=== PATIENT | male | born 1970 | race Two or more races ===

== ENCOUNTER 2020-06-17 15:37 | Inpatient (IN) | payer SELFPAY ==
[~2020-06-17] VITALS: Ht 152.4 cm; Wt 74.3 kg
[2020-06-17] MEDS ORDERED: ACETAMINOPHEN 325 MG TAB PO ONE (16:30)
[2020-06-17 16:49] LABS: Basophils # (auto) 0 10 ^3/uL (0-0.2); Basophils % (auto) 0.2 % (0.0-2.0); Eosinophils # (auto) 0.1 10 ^3/uL (0-0.8); Eosinophils % (auto) 1.3 % (0.0-7.0); Hematocrit 39.6 % (41.0-53.0); Hemoglobin 13.8 g/dL (13.5-17.5); Lymphocytes # (auto) 1.1 10 ^3/uL (0.4-5.4); Mean Corpuscular Hemoglobin 31.2 pg (28.0-32.0); Mean Corpuscular Hgb Conc. 34.9 g/dL (32.0-36.0); Mean Corpuscular Volume 89.4 fL (80.0-100.0); Monocytes # (auto) 0.4 10 ^3/uL (0-1.3); Monocytes % (auto) 4.7 % (0.0-12.0); Neutrophils # (auto) 6.6 10 ^3/uL (1.6-8.6); Neutrophils % (auto) 80.8 % (37.0-80.0); Nucleated Red Blood Cells % 0.1 %; Platelet Count (auto) 384 10^3/uL (140-450); Red Blood Cells 4.43 10^6/uL (4.5-5.90); Red Cell Distribution Width 13.2 % (11.8-14.3); White Blood Cell 8.2 10^3/uL (4.4-10.8)
[2020-06-17 17:06] LABS: Albumin 2.1 g/dL (3.4-5.0); Anion Gap 9 (5-15); Calcium 8.1 mg/dL (8.5-10.1); Carbon Dioxide 21 mmol/L (21-32); Chloride 103 mmol/L (98-107); Glucose 180 mg/dL (74-106); Magnesium 2.4 mg/dL (1.6-2.6); Potassium 4.2 mmol/L (3.5-5.1); Sodium 133 mmol/L (136-145)
[2020-06-17 17:07] LABS: INR 1.15 (0.9-1.15); Partial Thromboplastin Time 25.1 sec (23.0-31.2)
[2020-06-17 17:09] LABS: Lactic Acid w/Reflex 2.1 mmol/L (0.4-2.0)
[2020-06-17 17:11] LABS: Alanine Aminotransferase 56 U/L (16-61); Aspartate Aminotransferase 58 U/L (15-37); BUN/Creatinine Ratio 26.5; Bilirubin, Total 0.5 mg/dL (0.2-1.0); Blood Urea Nitrogen 18 mg/dL (7-18); GFR African American 157 mL/min; GFR Non-African American 130 mL/min; Total Protein 7.6 g/dL (6.4-8.2)
[2020-06-17 17:12] LABS: Alkaline Phosphatase 233 U/L (45-117)
[2020-06-17] MEDS ORDERED: DexAMETHasone SOD PHOS 10MG/1ML VIAL INJ IV ONE (17:15)
[2020-06-17] MEDS ORDERED: AZITHROMYCIN 500MG/ 250ML 250 ML IV ONE (17:15)
[2020-06-17] MEDS ORDERED: INFLUENZA QUAD 2020-2021 0.5 ML SYRG IM ONE (18:00)
[2020-06-17] MEDS ORDERED: SODIUM CHLORIDE 0.9% 1,000 ML IV SCH (18:00)
[2020-06-17] MEDS ORDERED: NITROGLYCERIN 0.4 MG SL TAB SL PRN (18:00)
[2020-06-17] MEDS ORDERED: ONDANSETRON HCL 4 MG/2 ML VIAL IV PRN (18:00)
[2020-06-17] MEDS ORDERED: ACETAMINOPHEN 500 MG TAB PO PRN (18:00)
[2020-06-17] MEDS ORDERED: LORazepam 0.5 MG TAB PO PRN (18:00)
[2020-06-17] MEDS ORDERED: DOCUSATE SOD 100 MG CAP PO PRN (18:00)
[2020-06-17] MEDS ORDERED: HYDROcodone-ACET 5/325MG TAB PO PRN (18:00)
[2020-06-17] MEDS ORDERED: REMDESIVIR PER PHARMACY 0 ML IV SCH (18:00)
[2020-06-17] MEDS ORDERED: ACETAMINOPHEN 325 MG TAB PO PRN (18:00)
[2020-06-17] MEDS ORDERED: PIPERACILLIN-TAZOB 2.25GM 50 ML IV ONE (18:00)
[2020-06-17] MEDS ORDERED: ALUM & MAG HYDROX-SIMETH LIQ(MAALOX) 30 ML PO PRN (18:00)
[2020-06-17] MEDS ORDERED: VANCOMYCIN PER PHARMACY 0 MG IV SCH (18:00)
[2020-06-17] MEDS ORDERED: MORPHINE SULF INJ 2 MG/ML SYRINGE 1ML IV PRN ×2 (18:00)
[2020-06-17] MEDS ORDERED: PNEUMOCOCCAL VACC POLYS 25 MCG/0.5 ML VIAL IM ONE (18:00)
[2020-06-17] MEDS ORDERED: ALBUMIN 25% 100 ML IV ONE (18:15)
[2020-06-17] MEDS ORDERED: PIPERACILLIN-TAZOB 3.375GM 100 ML IV ONE (18:15)
[2020-06-17] MEDS ORDERED: FUROSEMIDE 20 MG/2 ML VIAL IV ONE (18:15)
[2020-06-17] MEDS ORDERED: ENOXAPARIN SOD 80 MG/0.8ML SYRINGE SC ONE (18:30)
[2020-06-17 19:02] LABS: Urine Bacteria NONE SEEN /hpf (None Seen); Urine Blood Negative /uL (Negative); Urine Mucus FEW (None Seen); Urine Specific Gravity 1.023 (1.001-1.035); Urine WBC <1 /hpf (0 - 3)
[2020-06-17] MEDS: VANCOMYCIN 1GM/250ML 250 ML IV SCH (21:04)
[2020-06-17] MEDS: FAMOTIDINE (10MG/ML) 2ML VL IV SCH (21:19)
[2020-06-17] MEDS: BUDESONIDE (INHALATION) 180 MCG IH IN SCH (22:00)
[2020-06-17 23:14] LABS: Basophils # (auto) 0 10 ^3/uL (0-0.2); Basophils % (auto) 0.3 % (0.0-2.0); Eosinophils # (auto) 0 10 ^3/uL (0-0.8); Eosinophils % (auto) 0.3 % (0.0-7.0); Hematocrit 40.2 % (41.0-53.0); Hemoglobin 13.2 g/dL (13.5-17.5); Lymphocytes # (auto) 0.7 10 ^3/uL (0.4-5.4); Lymphocytes % (auto) 10.5 % (10.0-50.0); Mean Corpuscular Hemoglobin 29.8 pg (28.0-32.0); Mean Corpuscular Hgb Conc. 32.9 g/dL (32.0-36.0); Mean Corpuscular Volume 90.6 fL (80.0-100.0); Monocytes # (auto) 0.2 10 ^3/uL (0-1.3); Monocytes % (auto) 2.5 % (0.0-12.0); Neutrophils # (auto) 5.6 10 ^3/uL (1.6-8.6); Neutrophils % (auto) 86.4 % (37.0-80.0); Nucleated Red Blood Cells % 0.1 %; Platelet Count (auto) 411 10^3/uL (140-450); Red Blood Cells 4.44 10^6/uL (4.5-5.90); Red Cell Distribution Width 13.6 % (11.8-14.3); White Blood Cell 6.5 10^3/uL (4.4-10.8)
[2020-06-17 23:32] LABS: Albumin 2.6 g/dL (3.4-5.0); Anion Gap 10 (5-15); Blood Urea Nitrogen 19 mg/dL (7-18); Calcium 8.6 mg/dL (8.5-10.1); Carbon Dioxide 22 mmol/L (21-32); Chloride 101 mmol/L (98-107); Magnesium 2.5 mg/dL (1.6-2.6); Potassium 4.3 mmol/L (3.5-5.1); Sodium 133 mmol/L (136-145)
[2020-06-17 23:40] LABS: Cholesterol 106 mg/dL (< 200); Triglycerides 232 mg/dL (< 150)
[2020-06-17 23:42] LABS: Alanine Aminotransferase 51 U/L (16-61); Alkaline Phosphatase 220 U/L (45-117); Aspartate Aminotransferase 45 U/L (15-37); Bilirubin, Total 0.8 mg/dL (0.2-1.0); GFR African American 145 mL/min; GFR Non-African American 120 mL/min; Glucose 280 mg/dL (74-106); Lactate Dehydrogenase 522 U/L (87-241); Total Protein 7.7 g/dL (6.4-8.2)
[2020-06-17 23:43] LABS: HDL Cholesterol 13 mg/dL (40-59); LDL Cholesterol 58 mg/dL (< 100)
[2020-06-17 23:44] LABS: CRP High Sensitivity > 19 mg/dL (< 0.3)
[2020-06-18 00:38] LABS: Alcohol, Urine < 3.0 mg/dL (0-10); Amphetamine Screen, Urine NEGATIVE (NEGATIVE); Barbiturate Scree,Urine NEGATIVE (NEGATIVE); Benzodiazephine Screen, Urine NEGATIVE (NEGATIVE); Cannabinoid Screen, Urine NEGATIVE (NEGATIVE); Cocaine Screen, Urine NEGATIVE (NEGATIVE); Opiate Scree,Urine NEGATIVE (NEGATIVE); Phencyclidine Screen, Urine NEGATIVE (NEGATIVE)
[2020-06-18] MEDS: ALBUMIN 25% 100 ML IV SCH ×3 (01:10→23:15)
[2020-06-18 02:21] LABS: Albumin 2.3 g/dL (3.4-5.0); BUN/Creatinine Ratio 32.3; Calcium 8.1 mg/dL (8.5-10.1); Potassium 4.3 mmol/L (3.5-5.1)
[2020-06-18 02:28] LABS: Bilirubin, Total 0.5 mg/dL (0.2-1.0); Total Protein 7.2 g/dL (6.4-8.2)
[2020-06-18 03:45] LABS: Free T4 (Free Thyroxine) 1.19 ng/dL (0.89-1.76)
[2020-06-18 03:46] LABS: T3 Total 0.47 ng/mL (0.60-1.81)
[2020-06-18] MEDS: VANCOMYCIN 1GM/250ML 250 ML IV SCH ×2 (05:00→13:32)
[2020-06-18] MEDS: FUROSEMIDE 20 MG/2 ML VIAL IV SCH ×2 (05:03→18:39)
[2020-06-18] MEDS: ENOXAPARIN SOD 80 MG/0.8ML SYRINGE SC SCH ×2 (05:03→18:39)
[2020-06-18] MEDS: PIPERACILLIN-TAZOB 3.375GM 100 ML IV SCH ×4 (05:04→23:26)
[2020-06-18 05:30] LABS: Basophils # (auto) 0 10 ^3/uL (0-0.2); Basophils % (auto) 0.1 % (0.0-2.0); Eosinophils # (auto) 0 10 ^3/uL (0-0.8); Eosinophils % (auto) 0.1 % (0.0-7.0); Hemoglobin 13.3 g/dL (13.5-17.5); Lymphocytes # (auto) 0.9 10 ^3/uL (0.4-5.4); Lymphocytes % (auto) 17.1 % (10.0-50.0); Mean Corpuscular Hemoglobin 29.8 pg (28.0-32.0); Mean Corpuscular Hgb Conc. 33.1 g/dL (32.0-36.0); Monocytes # (auto) 0.2 10 ^3/uL (0-1.3); Monocytes % (auto) 4.5 % (0.0-12.0); Neutrophils # (auto) 4.1 10 ^3/uL (1.6-8.6); Neutrophils % (auto) 78.2 % (37.0-80.0); Nucleated Red Blood Cells % 0.1 %; Platelet Count (auto) 445 10^3/uL (140-450); Red Blood Cells 4.45 10^6/uL (4.5-5.90); Red Cell Distribution Width 13.1 % (11.8-14.3); White Blood Cell 5.2 10^3/uL (4.4-10.8)
--- NOTE | 2020-06-18 06:08 | NUR ---
Respiratory note: PATIENT SEEN, HR 82, RR 21, SPO2 92% ON 15L NRB. NO MDI'S AT BEDSIDE. WILL CALL PHARMACY
[2020-06-18] MEDS: BUDESONIDE (INHALATION) 180 MCG IH IN SCH ×2 (10:00→22:29)
[2020-06-18] MEDS: FAMOTIDINE (10MG/ML) 2ML VL IV SCH ×2 (10:08→23:00)
[2020-06-18] MEDS: ZINC SULFATE 220mg CAP or TAB PO SCH (10:08)
[2020-06-18] MEDS: DexAMETHasone SOD PHOS 10MG/1ML VIAL INJ IV SCH (10:08)
[2020-06-18] MEDS: ASCORBIC ACID 1,000 MG TAB PO SCH (10:09)
[2020-06-18] MEDS: CHOLECALCIFEROL (VITD3) 2,000 UNIT CAP PO SCH (10:09)
[2020-06-18] MEDS ORDERED: REMDESIVIR 200 MG in NS 210ml LOADING DOSE ADULT IV ONE (15:00)
[2020-06-18] MEDS ORDERED: LEVOTHYROXINE SODIUM 25 MCG TAB PO ONE (19:30)
[2020-06-18] MEDS ORDERED: DEXTROSE (50%) 50ML SYRG IV PRN (19:30)
--- NOTE | 2020-06-18 21:00 | NUR ---
Home Medication Patient does not remember what medications he takes at home. Will attempt to all daughter in the morning and reconcile home medications.
[2020-06-18 22:05] VITALS: BP 104/70
--- NOTE | 2020-06-18 22:05 | NUR ---
Telemetry admit from ER to [place] [id number] unit JAYLYN CHAN admitted to Telemetry unit with no SBAR received. This RN found patient laying in bed with nonrebreather at 0L/min on a portable oxygen tank after ER dropped off patient. This RN immediately connected oxygen to 15L/min nonrebreather, oxygen saturation was found in the high 70s, low 80s. This RN instructed patient to take several deep breaths. Patient's oxygen increased to 86% and sustained at 86% on 15L/min nonrebreather, respiratory therapist was notified. Patient is alert and oriented x4. Patient oriented to TAYLOR DAY, primary RN, unit, room, bed, and unit policies regarding patient care and visiting hours. Patient now on continuous telemetry monitoring, tele box #7 and telemetry reading on arrival to unit is sinus rhythm. Instructed on plan of care and encouraged patient to call for assistance as needed, patient verbalized understanding. Bed is locked in lowest position, side rails x 2 are up, call light is within reach, and bed alarm is on. Patient's oxygen saturation is now at 90% via 15L/min nonrebreather. Addendum: 06/19/20 at 0224 by TAYLOR DAY RN RN Correct admit time 20:24
--- NOTE | 2020-06-18 22:11 | NUR ---
Spoke with pharmacist regarding scheduled 18:00 zosyn Spoke with pharmacist regarding scheduled 18:00 zosyn. Notified pharmacist that patient was in the ER at 18:00 and was not given the scheduled zosyn per EMAR. Pharmacist notified that this RN has another scheduled 00:00 zosyn. Per pharmacist skip the 18:00 and give 00:00 zosyn.
[2020-06-18] MEDS: ALBUTEROL SULF HFA 90MCG INH 200DOSE IN PRN (22:29)
[2020-06-18] MEDS ORDERED: ALBUMIN 25% 100 ML IV ONE (22:47)
[2020-06-18] MEDS: INSULIN LANTUS (GLARGINE) 1 /0.01ml (100units/ml) SC SCH (23:06)
[2020-06-18] MEDS: InsuLIN REG 1unit/0.01ml Soln (100units/ml) SC SCH (23:23)
[2020-06-19] MEDS: ACCU-CHEK COMFORT CURVE STRIP VI SCH ×4 (01:24→17:55)
[2020-06-19] MEDS ORDERED: INFLUENZA QUAD 2020-2021 0.5 ML SYRG IM ONE (01:30)
[2020-06-19 06:00] VITALS: BP 109/77
[2020-06-19] MEDS: ENOXAPARIN SOD 80 MG/0.8ML SYRINGE SC SCH ×2 (06:01→17:55)
[2020-06-19] MEDS: LEVOTHYROXINE SODIUM 25 MCG TAB PO SCH (06:01)
[2020-06-19] MEDS: PIPERACILLIN-TAZOB 3.375GM 100 ML IV SCH ×3 (06:01→17:54)
[2020-06-19] MEDS: FUROSEMIDE 20 MG/2 ML VIAL IV SCH (06:01)
[2020-06-19] MEDS: InsuLIN REG 1unit/0.01ml Soln (100units/ml) SC SCH ×3 (06:16→17:56)
[2020-06-19 08:00] VITALS: BP 127/72
[2020-06-19] MEDS: BUDESONIDE (INHALATION) 180 MCG IH IN SCH ×2 (10:00→18:00)
[2020-06-19] MEDS: DexAMETHasone SOD PHOS 10MG/1ML VIAL INJ IV SCH (10:19)
[2020-06-19] MEDS: ZINC SULFATE 220mg CAP or TAB PO SCH (10:20)
[2020-06-19] MEDS: FAMOTIDINE (10MG/ML) 2ML VL IV SCH ×2 (10:20→22:45)
[2020-06-19] MEDS: CHOLECALCIFEROL (VITD3) 2,000 UNIT CAP PO SCH (10:20)
[2020-06-19] MEDS: ASCORBIC ACID 1,000 MG TAB PO SCH (10:20)
[2020-06-19 12:00] VITALS: BP 127/72
--- NOTE | 2020-06-19 13:00 | NUR ---
PATIENT C/O CHEST PAIN TO THE UPPER RIGHT ANTERIOR CHEST. PER PATIENT THIS HAS BEEN HAPPENING OFF AND ON FOR APPROXIMATELY [address] HANCOCK NOTIFIED EKG DONE IN CHART, I READ WHAT THE EKG SHOWED TO DR HANCOCK AND PER DR HANCOCK PLACE CARDIAC CONSULT TO [facility].
[2020-06-19] MEDS ORDERED: ASPirin 81 mg TAB PO ONE (13:45)
--- NOTE | 2020-06-19 14:00 | NUR ---
ABIOLA NOTIFIED AND NOT GROUTER HELPER , CONSULT CALLED TO DR PERRY.
[2020-06-19] MEDS: REMDESIVIR 100 MG in SODIUM CHL 0.9% 250 ML IV SCH (15:47)
[2020-06-19 17:00] VITALS: BP 118/76
--- NOTE | 2020-06-19 18:00 | NUR ---
CONVALESCENT PLASMA GIVEN PATIENT TOLERATED WELL. VITAL SIGNS [id number] 84, 92% 20 98.0 MID 112/76 87 91% 97.7 20 POST 118/76 82 95% 22 97.7
--- NOTE | 2020-06-19 18:47 | NUR ---
PATIENT HAS NO COMPLAINTS OF PAIN
[2020-06-19] MEDS: ALBUTEROL SULF HFA 90MCG INH 200DOSE IN PRN (19:31)
[2020-06-19 22:39] VITALS: BP 116/76
[2020-06-19] MEDS: INSULIN LANTUS (GLARGINE) 1 /0.01ml (100units/ml) SC SCH (22:46)
[2020-06-20] MEDS: ACCU-CHEK COMFORT CURVE STRIP VI SCH ×4 (00:47→17:30)
[2020-06-20] MEDS: PIPERACILLIN-TAZOB 3.375GM 100 ML IV SCH ×4 (00:47→17:30)
[2020-06-20] MEDS: InsuLIN REG 1unit/0.01ml Soln (100units/ml) SC SCH ×4 (00:48→17:31)
[2020-06-20 05:30] VITALS: BP 125/73
[2020-06-20] MEDS: ENOXAPARIN SOD 80 MG/0.8ML SYRINGE SC SCH ×2 (06:04→17:30)
[2020-06-20] MEDS: LEVOTHYROXINE SODIUM 25 MCG TAB PO SCH (06:07)
--- NOTE | 2020-06-20 07:35 | NUR ---
Opening Shift Note Assumed care of patient, awake and alert, cambodian speaking. No S/S of distress, SOB remains on 15L nonbreather, denies pain. Instructed on POC and to call for assist PRN, will continue to monitor for changes Q1hr and PRN.
[2020-06-20 09:00] VITALS: BP 99/62
[2020-06-20] MEDS: ASPirin 81 mg TAB PO SCH (09:24)
[2020-06-20] MEDS: FAMOTIDINE (10MG/ML) 2ML VL IV SCH ×2 (09:24→22:33)
[2020-06-20] MEDS: FUROSEMIDE 20 MG/2 ML VIAL IV SCH (09:24)
[2020-06-20] MEDS: ZINC SULFATE 220mg CAP or TAB PO SCH (09:24)
[2020-06-20] MEDS: CHOLECALCIFEROL (VITD3) 2,000 UNIT CAP PO SCH (09:25)
[2020-06-20] MEDS: ASCORBIC ACID 1,000 MG TAB PO SCH (09:25)
[2020-06-20] MEDS: BUDESONIDE (INHALATION) 180 MCG IH IN SCH ×2 (10:00→22:37)
[2020-06-20] MEDS: DexAMETHasone SOD PHOS 10MG/1ML VIAL INJ IV SCH (10:37)
[2020-06-20 13:00] VITALS: BP 108/72
[2020-06-20] MEDS: REMDESIVIR 100 MG in SODIUM CHL 0.9% 250 ML IV SCH (15:00)
--- NOTE | 2020-06-20 15:00 | NUR ---
Remdesivir started vs bp 108/72, p 91, reports feeling well, 15 mins in bp 99/62, p 99, will continue to monitor.
[2020-06-20 17:00] VITALS: BP 109/66
[2020-06-20] MEDS: ALBUTEROL SULF HFA 90MCG INH 200DOSE IN PRN ×2 (17:17→22:37)
[2020-06-20 22:00] VITALS: BP 111/74
[2020-06-20] MEDS: INSULIN LANTUS (GLARGINE) 1 /0.01ml (100units/ml) SC SCH (22:33)
[2020-06-21] MEDS: ACCU-CHEK COMFORT CURVE STRIP VI SCH ×4 (00:54→17:46)
[2020-06-21] MEDS: PIPERACILLIN-TAZOB 3.375GM 100 ML IV SCH ×4 (00:54→17:44)
[2020-06-21] MEDS: InsuLIN REG 1unit/0.01ml Soln (100units/ml) SC SCH ×5 (00:55→17:45)
[2020-06-21 05:00] VITALS: BP 101/65
[2020-06-21] MEDS: ENOXAPARIN SOD 80 MG/0.8ML SYRINGE SC SCH ×2 (06:14→17:45)
[2020-06-21] MEDS: LEVOTHYROXINE SODIUM 25 MCG TAB PO SCH (06:15)
--- NOTE | 2020-06-21 07:23 | NUR ---
Opening Shift Note Assumed care of patient, awake and alert. No S/S of distress/SOB, remains on 15L nonrebreather, denies pain. Instructed on POC and to call for assist PRN, will continue to monitor for changes Q1hr and PRN.
[2020-06-21 08:42] VITALS: BP 100/67
[2020-06-21] MEDS: DexAMETHasone SOD PHOS 10MG/1ML VIAL INJ IV SCH (09:23)
[2020-06-21] MEDS: ASCORBIC ACID 1,000 MG TAB PO SCH (09:24)
[2020-06-21] MEDS: FAMOTIDINE (10MG/ML) 2ML VL IV SCH ×2 (09:24→22:01)
[2020-06-21] MEDS: ZINC SULFATE 220mg CAP or TAB PO SCH (09:24)
[2020-06-21] MEDS: ASPirin 81 mg TAB PO SCH (09:24)
[2020-06-21] MEDS: FUROSEMIDE 20 MG/2 ML VIAL IV SCH (09:24)
[2020-06-21] MEDS: CHOLECALCIFEROL (VITD3) 2,000 UNIT CAP PO SCH (09:25)
[2020-06-21] MEDS: BUDESONIDE (INHALATION) 180 MCG IH IN SCH ×2 (09:26→20:12)
[2020-06-21] MEDS: ALBUTEROL SULF HFA 90MCG INH 200DOSE IN PRN ×2 (09:26→20:13)
[2020-06-21 10:16] LABS: Basophils # (auto) 0 10 ^3/uL (0-0.2); Basophils % (auto) 0.1 % (0.0-2.0); Eosinophils # (auto) 0.1 10 ^3/uL (0-0.8); Eosinophils % (auto) 0.7 % (0.0-7.0); Hematocrit 41.4 % (41.0-53.0); Hemoglobin 13.8 g/dL (13.5-17.5); Lymphocytes # (auto) 2.1 10 ^3/uL (0.4-5.4); Lymphocytes % (auto) 18.7 % (10.0-50.0); Mean Corpuscular Hgb Conc. 33.2 g/dL (32.0-36.0); Mean Corpuscular Volume 90.3 fL (80.0-100.0); Monocytes # (auto) 0.4 10 ^3/uL (0-1.3); Monocytes % (auto) 3.9 % (0.0-12.0); Neutrophils # (auto) 8.6 10 ^3/uL (1.6-8.6); Neutrophils % (auto) 76.6 % (37.0-80.0); Red Blood Cells 4.58 10^6/uL (4.5-5.90); Red Cell Distribution Width 13.5 % (11.8-14.3); White Blood Cell 11.2 10^3/uL (4.4-10.8)
[2020-06-21 10:33] LABS: Albumin 2.6 g/dL (3.4-5.0); Calcium 8.9 mg/dL (8.5-10.1); Potassium 3.9 mmol/L (3.5-5.1)
[2020-06-21 10:36] LABS: Platelet Count (auto) 660 10^3/uL (140-450)
[2020-06-21 10:38] LABS: BUN/Creatinine Ratio 37.7; Bilirubin, Total 0.5 mg/dL (0.2-1.0)
--- NOTE | 2020-06-21 10:45 | NUR ---
Nutrition Assessment Est energy needs 8940-6340 kcal (20-25 kcal/kg BW 76.3kg) Est protein needs 48-63g (1-1.3g/kg IBW 48kg) Will monitor and reassess prn. Addendum: 06/21/20 at [address] Amended: Links added.
[2020-06-21 13:00] VITALS: BP 97/66
[2020-06-21] MEDS: REMDESIVIR 100 MG in SODIUM CHL 0.9% 250 ML IV SCH (15:00)
--- NOTE | 2020-06-21 15:00 | NUR ---
Remdesivir started, BP 101/73, p 88, reports feeling well, 15 mins in bp 99/64, P 90, will continue to monitor.
[2020-06-21 16:42] VITALS: BP 101/73
[2020-06-21 22:00] VITALS: BP 104/71
[2020-06-21] MEDS: INSULIN LANTUS (GLARGINE) 1 /0.01ml (100units/ml) SC SCH (22:02)
[2020-06-21] MEDS ORDERED: PIPERACILLIN-TAZOB 3.375GM 100 ML IV ONE (23:59)
[2020-06-22] MEDS: PIPERACILLIN-TAZOB 3.375GM 100 ML IV SCH ×5 (00:26→23:35)
[2020-06-22] MEDS: ACCU-CHEK COMFORT CURVE STRIP VI SCH ×5 (00:26→23:35)
[2020-06-22] MEDS: InsuLIN REG 1unit/0.01ml Soln (100units/ml) SC SCH ×5 (00:27→23:38)
[2020-06-22 05:00] VITALS: BP 104/70
[2020-06-22] MEDS: ENOXAPARIN SOD 80 MG/0.8ML SYRINGE SC SCH ×2 (06:14→18:04)
[2020-06-22] MEDS: LEVOTHYROXINE SODIUM 25 MCG TAB PO SCH (07:38)
[2020-06-22] MEDS: FUROSEMIDE 20 MG/2 ML VIAL IV SCH (09:45)
[2020-06-22] MEDS: DexAMETHasone SOD PHOS 10MG/1ML VIAL INJ IV SCH (09:45)
[2020-06-22] MEDS: FAMOTIDINE (10MG/ML) 2ML VL IV SCH ×2 (09:45→21:48)
[2020-06-22] MEDS: ASCORBIC ACID 1,000 MG TAB PO SCH (09:46)
[2020-06-22] MEDS: CHOLECALCIFEROL (VITD3) 2,000 UNIT CAP PO SCH (09:46)
[2020-06-22] MEDS: ZINC SULFATE 220mg CAP or TAB PO SCH (09:46)
[2020-06-22] MEDS: ASPirin 81 mg TAB PO SCH (09:46)
[2020-06-22] MEDS: BUDESONIDE (INHALATION) 180 MCG IH IN SCH ×2 (10:00→22:00)
[2020-06-22] MEDS: REMDESIVIR 100 MG in SODIUM CHL 0.9% 250 ML IV SCH (16:38)
--- NOTE | 2020-06-22 19:00 | NUR ---
Opening Shift Note Assumed care of patient, awake and alert. Patient in the prone position, No S/S of distress/SOB or pain. Instructed on POC and to call for assist PRN, will continue to monitor for changes Q1hr and PRN. Patient in the lowest possible position with call light within reach. Will continue to monitor.
[2020-06-22] MEDS: INSULIN LANTUS (GLARGINE) 1 /0.01ml (100units/ml) SC SCH (21:57)
[2020-06-22 22:00] VITALS: BP 102/70
[2020-06-22] MEDS ORDERED: INSULIN LANTUS (GLARGINE) 1 /0.01ml (100units/ml) SC SCH (22:00)
[2020-06-22] MEDS: ALBUTEROL SULF HFA 90MCG INH 200DOSE IN PRN (23:30)
[2020-06-23 05:00] VITALS: BP 93/65
[2020-06-23] MEDS: ENOXAPARIN SOD 80 MG/0.8ML SYRINGE SC SCH ×2 (05:52→17:49)
[2020-06-23] MEDS: ACCU-CHEK COMFORT CURVE STRIP VI SCH ×4 (05:52→23:40)
[2020-06-23] MEDS: PIPERACILLIN-TAZOB 3.375GM 100 ML IV SCH ×4 (05:53→23:40)
[2020-06-23] MEDS: InsuLIN REG 1unit/0.01ml Soln (100units/ml) SC SCH ×4 (05:57→23:41)
[2020-06-23 08:56] LABS: Basophils # (auto) 0 10 ^3/uL (0-0.2); Eosinophils # (auto) 0.1 10 ^3/uL (0-0.8); Hemoglobin 14.4 g/dL (13.5-17.5); Monocytes % (auto) 7.7 % (0.0-12.0)
[2020-06-23 08:58] LABS: Eosinophils % (auto) 0.8 % (0.0-7.0); Hematocrit 43.7 % (41.0-53.0); Lymphocytes % (auto) 20.5 % (10.0-50.0); Mean Corpuscular Hgb Conc. 32.9 g/dL (32.0-36.0); Mean Corpuscular Volume 91.3 fL (80.0-100.0); Monocytes # (auto) 0.7 10 ^3/uL (0-1.3); Neutrophils # (auto) 6.9 10 ^3/uL (1.6-8.6); Red Blood Cells 4.78 10^6/uL (4.5-5.90); Red Cell Distribution Width 13.5 % (11.8-14.3); White Blood Cell 9.8 10^3/uL (4.4-10.8)
[2020-06-23 09:00] VITALS: BP 97/63
[2020-06-23 09:06] LABS: Platelet Count (auto) 818 10^3/uL (140-450)
[2020-06-23 09:26] LABS: Ferritin 600.1 ng/mL (10-322)
[2020-06-23 09:28] LABS: Magnesium 2.6 mg/dL (1.6-2.6); Potassium 4.4 mmol/L (3.5-5.1)
[2020-06-23 09:40] LABS: Albumin 2.5 g/dL (3.4-5.0); BUN/Creatinine Ratio 36.4; Bilirubin, Total 0.6 mg/dL (0.2-1.0); CRP High Sensitivity 1.67 mg/dL (< 0.3); Calcium 8.8 mg/dL (8.5-10.1); Total Protein 6.9 g/dL (6.4-8.2)
[2020-06-23] MEDS: BUDESONIDE (INHALATION) 180 MCG IH IN SCH ×2 (10:00→20:46)
[2020-06-23] MEDS: FAMOTIDINE (10MG/ML) 2ML VL IV SCH ×2 (10:29→23:37)
[2020-06-23] MEDS: DexAMETHasone SOD PHOS 10MG/1ML VIAL INJ IV SCH (10:29)
[2020-06-23] MEDS: ASPirin 81 mg TAB PO SCH (10:30)
[2020-06-23] MEDS: ZINC SULFATE 220mg CAP or TAB PO SCH (10:30)
[2020-06-23] MEDS: FUROSEMIDE 20 MG/2 ML VIAL IV SCH (10:31)
[2020-06-23] MEDS: ASCORBIC ACID 1,000 MG TAB PO SCH (10:31)
[2020-06-23] MEDS: CHOLECALCIFEROL (VITD3) 2,000 UNIT CAP PO SCH (10:31)
[2020-06-23] MEDS: ALBUTEROL SULF HFA 90MCG INH 200DOSE IN PRN ×2 (11:06→20:46)
--- NOTE | 2020-06-23 11:15 | NUR ---
at bedside Dr. Blue at bedside updating patient on POC. informed platelets are critically high at 818. No new orders received at this time, will continue care.
--- NOTE | 2020-06-23 11:27 | NUR ---
Nutrition Followup/consult Notes WT: 75.7 KG Unable to talk/edu pt as pt in covid isolation with no phone lines in room. pt with known hx of DM per records. pt with no distress noted per nursing. pt is currently on CCHO 60 gm/meal diet with adequate PO of 75% x 6 per RN doc Est energy needs 8343-9960 kcal (20-25 kcal/kg BW 76.3kg) Est protein needs 48-63g (1-1.3g/kg IBW 48kg) Will monitor and reassess prn. LABS: POC GLU 399 H no new labs today GI: Pt had 1 BM today per RN doc. BS: 18 mod risk. Refer to wound assessment report for further details PES: Obesity aeb pt with a BMI of 32.9kg/m2 r/t caloric intake in excess of needs Altered nutrition related labs aeb pt with hyperglycemia, hypoalb, elevated BUN r/t current and chronic medical conditions Comments Will continue to monitor PO intake, skin status, pertinent labs and weight trends. Will f/u in 3-5 days Rec: 1) refer pt to CDE on DC 2) Continue current plan of care
[2020-06-23 13:00] VITALS: BP 104/70
--- NOTE | 2020-06-23 13:50 | NUR ---
Spoke with family Spoke with patient's daughter Kelsey after password in account was verified. Daughter requesting update on patient's condition, update provided and all questions and concerns addressed at this time, will continue care.
[2020-06-23 17:00] VITALS: BP 99/64
[2020-06-23 22:00] VITALS: BP 97/67
[2020-06-23] MEDS: INSULIN LANTUS (GLARGINE) 1 /0.01ml (100units/ml) SC SCH (23:39)
[2020-06-24 05:00] VITALS: BP 100/70
[2020-06-24] MEDS: PIPERACILLIN-TAZOB 3.375GM 100 ML IV SCH ×2 (05:35→13:09)
[2020-06-24] MEDS: ENOXAPARIN SOD 80 MG/0.8ML SYRINGE SC SCH ×2 (05:35→17:40)
[2020-06-24] MEDS: ACCU-CHEK COMFORT CURVE STRIP VI SCH ×3 (05:36→17:40)
[2020-06-24] MEDS: InsuLIN REG 1unit/0.01ml Soln (100units/ml) SC SCH ×3 (05:37→17:40)
[2020-06-24] MEDS: ALBUTEROL SULF HFA 90MCG INH 200DOSE IN PRN ×2 (06:42→21:43)
[2020-06-24] MEDS: BUDESONIDE (INHALATION) 180 MCG IH IN SCH ×2 (06:42→21:43)
--- NOTE | 2020-06-24 07:30 | NUR ---
Opening Shift Note Assumed care of patient, awake and alert. no SOB and pain,Oxymizer 10 liters in used, Patient in the lowest possible position with call light within reach and bed rails up x2.suction working, Instructed on POC and to call for assist PRN, will continue to monitor for changes Q1hr and PRN.
[2020-06-24 09:00] VITALS: BP 92/59
--- NOTE | 2020-06-24 10:30 | NUR ---
MD VISIT HERE TO SEE PATIENT,EXPLAIN PLAN OF CARE AND TREATMENT TO PATIENT
[2020-06-24] MEDS: ASCORBIC ACID 1,000 MG TAB PO SCH (11:09)
[2020-06-24] MEDS: CHOLECALCIFEROL (VITD3) 2,000 UNIT CAP PO SCH (11:10)
[2020-06-24] MEDS: ASPirin 81 mg TAB PO SCH (11:10)
[2020-06-24] MEDS: ZINC SULFATE 220mg CAP or TAB PO SCH (11:10)
[2020-06-24] MEDS: FUROSEMIDE 20 MG/2 ML VIAL IV SCH (11:11)
[2020-06-24] MEDS: DexAMETHasone SOD PHOS 10MG/1ML VIAL INJ IV SCH (11:12)
[2020-06-24] MEDS: FAMOTIDINE (10MG/ML) 2ML VL IV SCH (11:12)
[2020-06-24] MEDS: INSULIN LANTUS (GLARGINE) 1 /0.01ml (100units/ml) SC SCH (11:14)
--- NOTE | 2020-06-24 11:30 | NUR ---
PATIENT EDUCATED,EXPLAIN IMPORTANCE OF USING IS Q 1 HOUR X 10 TIMES,VERBALIZED UNDERSTANDING.
[2020-06-24 13:00] VITALS: BP 91/60
--- NOTE | 2020-06-24 15:08 | NUR ---
PATIENT CHECKED IN PRONING POSITION AT THIS TIME
[2020-06-24 21:00] VITALS: BP 94/67
[2020-06-25] MEDS: INSULIN LANTUS (GLARGINE) 1 /0.01ml (100units/ml) SC SCH ×3 (00:01→22:00)
[2020-06-25] MEDS: InsuLIN REG 1unit/0.01ml Soln (100units/ml) SC SCH ×4 (00:02→18:30)
[2020-06-25] MEDS: ACCU-CHEK COMFORT CURVE STRIP VI SCH ×5 (00:03→23:52)
[2020-06-25 04:30] VITALS: BP 92/56
[2020-06-25] MEDS: ENOXAPARIN SOD 80 MG/0.8ML SYRINGE SC SCH ×2 (06:08→22:00)
[2020-06-25] MEDS: ALBUTEROL SULF HFA 90MCG INH 200DOSE IN PRN ×2 (06:47→19:42)
[2020-06-25] MEDS: BUDESONIDE (INHALATION) 180 MCG IH IN SCH ×2 (06:47→19:41)
--- NOTE | 2020-06-25 07:30 | NUR ---
ROUNDS PT RESTING IN PRONE POSITION WITH OXYMIZER IN PLACE AWAKE UPON RN AT BEDSIDE. MARTINIQUAIS SPEAING AND ENVIRONMENTAL HEALTH INSPECTORWesley VEGA AT BEDSIDE TO ASSIST IN TRANSLATION. NO C/O PAIN OR S/S OF DISTRESS TELE IN PLACE AND MONITORED WILL CONTINUE TO MONITOR
[2020-06-25 08:42] VITALS: BP 96/65
[2020-06-25] MEDS: FUROSEMIDE 20 MG/2 ML VIAL IV SCH (10:00)
[2020-06-25] MEDS: FAMOTIDINE (10MG/ML) 2ML VL IV SCH ×3 (10:20→22:00)
[2020-06-25] MEDS: DexAMETHasone SOD PHOS 10MG/1ML VIAL INJ IV SCH (10:20)
[2020-06-25] MEDS: ZINC SULFATE 220mg CAP or TAB PO SCH (10:21)
[2020-06-25] MEDS: ASPirin 81 mg TAB PO SCH (10:21)
[2020-06-25] MEDS: ASCORBIC ACID 1,000 MG TAB PO SCH (10:21)
[2020-06-25] MEDS: CHOLECALCIFEROL (VITD3) 2,000 UNIT CAP PO SCH (10:21)
[2020-06-25 13:00] VITALS: BP 105/68
[2020-06-25 13:46] LABS: Basophils # (auto) 0 10 ^3/uL (0-0.2); Eosinophils # (auto) 0.1 10 ^3/uL (0-0.8); Eosinophils % (auto) 0.6 % (0.0-7.0); Mean Corpuscular Hgb Conc. 33.6 g/dL (32.0-36.0); Monocytes # (auto) 0.4 10 ^3/uL (0-1.3)
[2020-06-25 13:47] LABS: Basophils % (auto) 0.1 % (0.0-2.0); Hematocrit 40.6 % (41.0-53.0); Hemoglobin 13.7 g/dL (13.5-17.5); Lymphocytes # (auto) 1.1 10 ^3/uL (0.4-5.4); Lymphocytes % (auto) 12.1 % (10.0-50.0); Mean Corpuscular Hemoglobin 30.4 pg (28.0-32.0); Mean Corpuscular Volume 90.3 fL (80.0-100.0); Monocytes % (auto) 4.5 % (0.0-12.0); Neutrophils # (auto) 7.2 10 ^3/uL (1.6-8.6); Neutrophils % (auto) 82.7 % (37.0-80.0); Nucleated Red Blood Cells % 0.1 %; Red Cell Distribution Width 13.5 % (11.8-14.3); White Blood Cell 8.7 10^3/uL (4.4-10.8)
[2020-06-25 13:52] LABS: Platelet Count (auto) 821 10^3/uL (140-450)
--- NOTE | 2020-06-25 14:32 | NUR ---
CRITICAL LAB NOTIFIED THAT LAB CALLED WITH CRITICAL RESULT PLT 821 WILL NOTIFY MD OF RESULT
[2020-06-25 14:33] LABS: BUN/Creatinine Ratio 36.4; Calcium 8.3 mg/dL (8.5-10.1); Potassium 4.5 mmol/L (3.5-5.1)
[2020-06-25 17:00] VITALS: BP 97/67
[2020-06-25 22:00] VITALS: BP 100/63
[2020-06-26 05:00] VITALS: BP 99/60
[2020-06-26] MEDS: ACCU-CHEK COMFORT CURVE STRIP VI SCH ×4 (05:39→23:26)
[2020-06-26] MEDS: InsuLIN REG 1unit/0.01ml Soln (100units/ml) SC SCH ×5 (05:43→23:26)
[2020-06-26] MEDS: BUDESONIDE (INHALATION) 180 MCG IH IN SCH ×2 (06:31→19:10)
[2020-06-26] MEDS: ALBUTEROL SULF HFA 90MCG INH 200DOSE IN PRN (06:31)
--- NOTE | 2020-06-26 07:40 | NUR ---
O2 titrated down O2 titrated down from 10 L Oxymizer to 8 L Oxymizer, patient O2 saturation at this time 93%.
[2020-06-26 09:00] VITALS: BP 139/57
[2020-06-26] MEDS: DexAMETHasone SOD PHOS 10MG/1ML VIAL INJ IV SCH (10:57)
[2020-06-26] MEDS: FUROSEMIDE 20 MG/2 ML VIAL IV SCH (10:58)
[2020-06-26] MEDS: ASCORBIC ACID 1,000 MG TAB PO SCH (10:58)
[2020-06-26] MEDS: ZINC SULFATE 220mg CAP or TAB PO SCH (10:58)
[2020-06-26] MEDS: FAMOTIDINE (10MG/ML) 2ML VL IV SCH ×2 (10:58→21:09)
[2020-06-26] MEDS: ASPirin 81 mg TAB PO SCH (10:58)
[2020-06-26] MEDS: ENOXAPARIN SOD 80 MG/0.8ML SYRINGE SC SCH ×2 (10:59→21:09)
[2020-06-26] MEDS: CHOLECALCIFEROL (VITD3) 2,000 UNIT CAP PO SCH (10:59)
[2020-06-26] MEDS: INSULIN LANTUS (GLARGINE) 1 /0.01ml (100units/ml) SC SCH ×2 (11:00→21:23)
--- NOTE | 2020-06-26 11:10 | NUR ---
Dr. Fan at bedside MD at bedside discussing POC with patient encouraging him to self prone. No new orders received at this time.
--- NOTE | 2020-06-26 12:11 | NUR ---
Nutrition Followup Notes WT: 75.2 KG Unable to talk/edu pt as pt in covid isolation with no phone lines in room. pt with known hx of DM per records. pt with no distress noted per nursing. pt is currently on CCHO 60 gm/meal diet with adequate PO of 75% x 2 days per RN doc Est energy needs 3435-5450 kcal (20-25 kcal/kg BW 76.3kg) Est protein needs 48-63g (1-1.3g/kg IBW 48kg) Will monitor and reassess prn. LABS: BUN 24 H GLU 205 H CA 8.3 L GI: Pt had 3 BM today per RN doc. BS: 18 mod risk. Refer to wound assessment report for further details PES: Obesity aeb pt with a BMI of 32.9kg/m2 r/t caloric intake in excess of needs Altered nutrition related labs aeb pt with hyperglycemia, hypoalb, elevated BUN r/t current and chronic medical conditions Comments Will continue to monitor PO intake, skin status, pertinent labs and weight trends. Will f/u in 3-5 days Rec: 1) refer pt to CDE on DC 2) Continue current plan of care
[2020-06-26 13:00] VITALS: BP 119/74
[2020-06-26 16:47] VITALS: BP 100/65
--- NOTE | 2020-06-26 17:30 | NUR ---
O2 titrated down O2 titrated down to 4 L via NC since last titration note. patient O2 saturation at this time 95% on 4L via NC. Patient asked to ambulate at this time on room air to assess if oxygenation drops with activity, will monitor O2 and update note at later time.
[2020-06-26 20:00] VITALS: BP 102/69
[2020-06-27] MEDS: ALBUTEROL SULF HFA 90MCG INH 200DOSE IN PRN ×3 (00:38→21:05)
[2020-06-27 05:00] VITALS: BP 97/64
[2020-06-27] MEDS: InsuLIN REG 1unit/0.01ml Soln (100units/ml) SC SCH ×3 (06:00→17:12)
[2020-06-27] MEDS: ACCU-CHEK COMFORT CURVE STRIP VI SCH ×4 (06:03→23:56)
[2020-06-27] MEDS: BUDESONIDE (INHALATION) 180 MCG IH IN SCH ×2 (06:57→21:05)
--- NOTE | 2020-06-27 07:15 | NUR ---
Patient lying in bed, awake and alert. No s/s of distress. Call light within reach. Care endorsed to dayshift RN.
[2020-06-27 09:00] VITALS: BP 97/58
[2020-06-27] MEDS: FUROSEMIDE 20 MG/2 ML VIAL IV SCH (10:33)
[2020-06-27] MEDS: DexAMETHasone SOD PHOS 10MG/1ML VIAL INJ IV SCH (10:33)
[2020-06-27] MEDS: FAMOTIDINE (10MG/ML) 2ML VL IV SCH ×2 (10:34→22:05)
[2020-06-27] MEDS: CHOLECALCIFEROL (VITD3) 2,000 UNIT CAP PO SCH (10:34)
[2020-06-27] MEDS: ASPirin 81 mg TAB PO SCH (10:34)
[2020-06-27] MEDS: ASCORBIC ACID 1,000 MG TAB PO SCH (10:34)
[2020-06-27] MEDS: ZINC SULFATE 220mg CAP or TAB PO SCH (10:34)
[2020-06-27] MEDS: ENOXAPARIN SOD 80 MG/0.8ML SYRINGE SC SCH ×2 (10:35→22:05)
[2020-06-27] MEDS: INSULIN LANTUS (GLARGINE) 1 /0.01ml (100units/ml) SC SCH ×2 (11:01→22:15)
--- NOTE | 2020-06-27 11:45 | NUR ---
Dr. Banks at bedside MD at bedside discussing POC. Per MD patient can be discharged after O2 tank has been delivered. No new orders received at this time.
[2020-06-27 13:00] VITALS: BP 160/87
[2020-06-27 15:28] VITALS: BP 110/71
[2020-06-27 17:00] VITALS: BP 100/63
--- NOTE | 2020-06-27 20:10 | NUR ---
Home oxygen not set up at this time. call or contact centre operator director social welfare paged, per PBX no electronic warfare operator director social welfare available after 19:00. Per report from rekha CASEY, electronic warfare operator director social welfare paged to no return call. Per report, aware. meat process worker Alex made aware. Will continue to monitor. Addendum: 06/28/20 at 0137 by SYD ANGULO RN RN ADDITION: Will endorse follow up with director social welfare regarding home oxygen to rekha CASEY.
[2020-06-27 23:30] VITALS: BP 90/58
[2020-06-28] MEDS: InsuLIN REG 1unit/0.01ml Soln (100units/ml) SC SCH ×4 (00:29→18:00)
[2020-06-28 05:32] VITALS: BP 91/57
[2020-06-28] MEDS: ACCU-CHEK COMFORT CURVE STRIP VI SCH ×3 (06:27→18:00)
--- NOTE | 2020-06-28 07:07 | NUR ---
Patient lying in bed, awake and alert. No s/s of distress. Call light within reach. Care endorsed to dayshift RN.
[2020-06-28] MEDS: BUDESONIDE (INHALATION) 180 MCG IH IN SCH (07:26)
[2020-06-28] MEDS: ALBUTEROL SULF HFA 90MCG INH 200DOSE IN PRN (07:54)
[2020-06-28 09:00] VITALS: BP 88/59
[2020-06-28] MEDS: INSULIN LANTUS (GLARGINE) 1 /0.01ml (100units/ml) SC SCH (10:00)
[2020-06-28] MEDS: DexAMETHasone SOD PHOS 10MG/1ML VIAL INJ IV SCH (10:41)
[2020-06-28] MEDS: FUROSEMIDE 20 MG/2 ML VIAL IV SCH (10:41)
[2020-06-28] MEDS: ASCORBIC ACID 1,000 MG TAB PO SCH (10:42)
[2020-06-28] MEDS: ZINC SULFATE 220mg CAP or TAB PO SCH (10:42)
[2020-06-28] MEDS: CHOLECALCIFEROL (VITD3) 2,000 UNIT CAP PO SCH (10:42)
[2020-06-28] MEDS: ENOXAPARIN SOD 80 MG/0.8ML SYRINGE SC SCH (10:42)
[2020-06-28] MEDS: FAMOTIDINE (10MG/ML) 2ML VL IV SCH (10:42)
[2020-06-28] MEDS: ASPirin 81 mg TAB PO SCH (10:42)
[2020-06-28 13:21] VITALS: BP 96/64
[2020-06-28] MEDS ORDERED: INSULIN LANTUS (GLARGINE) 1 /0.01ml (100units/ml) SC SCH (14:15)
--- NOTE | 2020-06-28 14:16 | NUR ---
2nd page to social insurance analyst Attempted to reach social insurance analyst at this time to discuss DC needs, pending O2 delivery. Left voicemail. Awaiting call back.
--- NOTE | 2020-06-28 14:43 | NUR ---
1443 06/28/20 - Provided update to nurse Xochitl regarding patient's order for home oxygen, currently patient is pending emergency [facility]AL, and would have to pay out of pocket for home oxygen at this time. Xochitl stated patient has been on RA for more than 24 hours O2 sats in the high 90's and will ask MD to cancel order.
--- NOTE | 2020-06-28 15:00 | NUR ---
MD rounding Dr. Bustillo at bedside was notified patient will have to pay out of pocket for O2 tank. Patient refusing O2 tank payment at this time and considers he does not need it. Per MD ok to cancel SS consult for home O2 and discharge patient.
[2020-06-28 16:56] VITALS: BP 128/72
--- NOTE | 2020-06-28 18:10 | NUR ---
DISCHARGE Discharge instructions given as ordered. Encourage to follow up at [facility] post-discharge clinic as instructed. All questions and concerns addressed. Patient verbalized understanding. IV removed with catheter intact, pressure dressing applied. Telemetry unit returned to ICU. Patient taken to vehicle ambulating with appropriate DC protocol. No distress noted at time of departure.
== END 2020-06-28 18:10 | disposition home or self-care (01) | DRG 871 ==
LOC: ER 15:37 → TELE 15:38 → TELE-E-ADS 06-18 20:21
PROVIDERS: ADMIT Hospitalist; ATTEND Internal Medicine Nephrology
PROC: XW033E5 Introduction of Remdesivir Anti-infective into Peripheral Vein, Percutaneous Approach, New Technology Group 5 (ICD-10-PCS; principal; 2020-06-17)
DX: A41.89 Other specified sepsis (principal); E43 Unspecified severe protein-calorie malnutrition; J12.89 Other viral pneumonia; J96.01 Acute respiratory failure with hypoxia; U07.1 COVID-19; E87.1 Hypo-osmolality and hyponatremia; E03.9 Hypothyroidism, unspecified; E11.65 Type 2 diabetes mellitus with hyperglycemia; E66.9 Obesity, unspecified; E78.1 Pure hyperglyceridemia; E78.5 Hyperlipidemia, unspecified; I10 Essential (primary) hypertension; Z79.82 Long term (current) use of aspirin; Z79.84 Long term (current) use of oral hypoglycemic drugs; R65.20 Severe sepsis without septic shock; Z23 Encounter for immunization; Z68.32 Body mass index [BMI] 32.0-32.9, adult
CPT/HCPCS: 36415; 71045; 80048; 80053; 80061; 80307; 81001; 82306; 82607; 82728; 82962; 83036; 83605; 83615; 83735; 83880; 84439; 84443; 84480; 84484; 85025; 85379; 85610; 85730; 86141; 87040; 87086; 87426; 93005; 93306; 94640; G0378; J1100; J1815; J2543; J3490; P9047

== ENCOUNTER 2021-03-31 15:09 | Inpatient (IN) | payer MEDICAID ==
[~2021-03-31] VITALS: Ht 165.1 cm; Wt 87.2 kg
[2021-03-31 15:28] LABS: Basophils # (auto) 0 10 ^3/uL (0-0.2); Basophils % (auto) 0.4 % (0.0-2.0); Eosinophils # (auto) 0 10 ^3/uL (0-0.8); Eosinophils % (auto) 0.4 % (0.0-7.0); Hematocrit 43.1 % (41.0-53.0); Hemoglobin 14.6 g/dL (13.5-17.5); Lymphocytes # (auto) 2.5 10 ^3/uL (0.4-5.4); Lymphocytes % (auto) 24.1 % (10.0-50.0); Mean Corpuscular Hemoglobin 30.3 pg (28.0-32.0); Mean Corpuscular Volume 89.2 fL (80.0-100.0); Monocytes # (auto) 0.7 10 ^3/uL (0-1.3); Monocytes % (auto) 6.6 % (0.0-12.0); Neutrophils # (auto) 7.1 10 ^3/uL (1.6-8.6); Neutrophils % (auto) 68.5 % (37.0-80.0); Nucleated Red Blood Cells % 0.1 %; Red Blood Cells 4.84 10^6/uL (4.5-5.90); Red Cell Distribution Width 13.3 % (11.8-14.3); White Blood Cell 10.3 10^3/uL (4.4-10.8)
[2021-03-31 15:45] LABS: Albumin 3.3 g/dL (3.4-5.0); Amylase 39 U/L (25-115); Anion Gap 9 (5-15); Blood Urea Nitrogen 15 mg/dL (7-18); Calcium 8.8 mg/dL (8.5-10.1); Carbon Dioxide 21 mmol/L (21-32); Chloride 105 mmol/L (98-107); Glucose 199 mg/dL (74-106); Lipase 118 U/L (73-393); Potassium 3.6 mmol/L (3.5-5.1); Sodium 135 mmol/L (136-145)
[2021-03-31 15:51] LABS: Alanine Aminotransferase 22 U/L (16-61); Alkaline Phosphatase 102 U/L (45-117); Aspartate Aminotransferase 12 U/L (15-37); BUN/Creatinine Ratio 20.3; Bilirubin, Total 0.7 mg/dL (0.2-1.0); GFR African American 142 mL/min; GFR Non-African American 118 mL/min; Total Protein 7.9 g/dL (6.4-8.2)
[2021-03-31] MEDS ORDERED: PIPERACILLIN-TAZO 4.5GM 100 ML IV ONE (20:30)
[2021-03-31] MEDS ORDERED: metroNIDAZOLE 500MG/100ML 100 ML IV ONE (22:45)
[2021-03-31] MEDS ORDERED: ONDANSETRON HCL 4 MG/2 ML VIAL IV PRN (22:45)
[2021-03-31] MEDS ORDERED: PANTOPRAZOLE 40 MG/10 ML VIAL INJ IV ONE (22:45)
[2021-03-31] MEDS: SODIUM CHLORIDE 0.9% 1,000 ML IV SCH (23:32)
[2021-04-01] VITALS (7 sets, daily range): BP systolic 109–147; BP diastolic 72–79
[2021-04-01] MEDS: SODIUM CHLORIDE 0.9% 1,000 ML IV SCH ×2 (03:45→23:09)
[2021-04-01] MEDS: metroNIDAZOLE 500MG/100ML 100 ML IV SCH ×3 (05:20→23:30)
[2021-04-01 06:46] LABS: Basophils # (auto) 0 10 ^3/uL (0-0.2); Basophils % (auto) 0.6 % (0.0-2.0); Eosinophils # (auto) 0.1 10 ^3/uL (0-0.8); Eosinophils % (auto) 1.2 % (0.0-7.0); Hematocrit 40.4 % (41.0-53.0); Hemoglobin 13.9 g/dL (13.5-17.5); Lymphocytes # (auto) 2.2 10 ^3/uL (0.4-5.4); Lymphocytes % (auto) 29.6 % (10.0-50.0); Mean Corpuscular Hgb Conc. 34.4 g/dL (32.0-36.0); Monocytes # (auto) 0.7 10 ^3/uL (0-1.3); Monocytes % (auto) 8.9 % (0.0-12.0); Neutrophils # (auto) 4.4 10 ^3/uL (1.6-8.6); Neutrophils % (auto) 59.7 % (37.0-80.0); Red Blood Cells 4.49 10^6/uL (4.5-5.90); Red Cell Distribution Width 13.2 % (11.8-14.3); White Blood Cell 7.4 10^3/uL (4.4-10.8)
[2021-04-01 07:10] LABS: Potassium 3.9 mmol/L (3.5-5.1)
[2021-04-01 07:20] LABS: Albumin 2.8 g/dL (3.4-5.0); BUN/Creatinine Ratio 33.3; Bilirubin, Total 0.5 mg/dL (0.2-1.0); Calcium 8.4 mg/dL (8.5-10.1); Total Protein 6.9 g/dL (6.4-8.2)
[2021-04-01] MEDS: cefTRIAXone 1GM/50ML D5W 50 ML IV SCH (09:07)
[2021-04-01] MEDS: PANTOPRAZOLE 40 MG/10 ML VIAL INJ IV SCH (10:00)
[2021-04-01 10:29] LABS: Urine Bacteria NONE SEEN /hpf (None Seen); Urine Blood Negative /uL (Negative); Urine Mucus FEW (None Seen); Urine Specific Gravity 1.037 (1.001-1.035); Urine WBC 4 /hpf (0 - 3)
[2021-04-01 11:21] LABS: Partial Thromboplastin Time 27.6 sec (23.6-33.0)
[2021-04-01] MEDS ORDERED: HYDROmorphone HCL 2 MG/ML VL ONE ×2 (11:38→14:23)
[2021-04-01] MEDS ORDERED: MIDAZOLAM HCL 2MG/2ML 2ml VIAL (1mg/ml) ONE (11:38)
[2021-04-01] MEDS ORDERED: ROCURONIUM 10MG/ML 10ML VIAL IV ONE (11:44)
[2021-04-01] MEDS ORDERED: PHENYLEPHRINE HCL 10 MG/ML VL ONE (12:11)
[2021-04-01] MEDS ORDERED: METOCLOPRAMIDE HCL 5MG/ml INJ 2ml VIAL ONE (12:30)
[2021-04-01] MEDS ORDERED: DexAMETHasone SOD PHOS 10MG/1ML VIAL INJ ONE (12:30)
[2021-04-01] MEDS ORDERED: ONDANSETRON HCL 4 MG/2 ML VIAL ONE (12:30)
[2021-04-01] MEDS ORDERED: NEOSTIGMINE 1 MG/ML INJ (10mg/10ML VIAL) ONE (12:47)
[2021-04-01] MEDS ORDERED: GLYCOPYRROLATE 0.2 MG/ML 1ML VIAL ONE (12:47)
[2021-04-01] MEDS ORDERED: ceFAZolin 1GM VL ONE (13:32)
[2021-04-01] MEDS ORDERED: fentaNYL CITRATE 100 MCG/2 ML VL ONE (13:52)
[2021-04-01] MEDS ORDERED: KETOROLAC TROMETH 60MG/2ML VIAL ONE (13:53)
[2021-04-01] MEDS ORDERED: HYDROmorphone HCL 2 MG/ML VL IV PRN ×2 (14:15)
[2021-04-01] MEDS ORDERED: ONDANSETRON HCL 4 MG/2 ML VIAL IV PRN (14:15)
[2021-04-01] MEDS: HYDROmorphone HCL 2 MG/ML VL IV PRN ×2 (14:23→14:44)
[2021-04-01] MEDS: MORPHINE SULFATE 4 MG/ML SYR/VIAL IV PRN ×2 (17:13→23:30)
[2021-04-02] MEDS: MORPHINE SULFATE 4 MG/ML SYR/VIAL IV PRN ×2 (04:40→09:11)
[2021-04-02 05:00] VITALS: BP 122/70
[2021-04-02 05:31] LABS: Basophils # (auto) 0 10 ^3/uL (0-0.2); Basophils % (auto) 0.2 % (0.0-2.0); Eosinophils # (auto) 0 10 ^3/uL (0-0.8); Eosinophils % (auto) 0.1 % (0.0-7.0); Hematocrit 40.7 % (41.0-53.0); Hemoglobin 13.5 g/dL (13.5-17.5); Lymphocytes # (auto) 1.7 10 ^3/uL (0.4-5.4); Lymphocytes % (auto) 17.1 % (10.0-50.0); Mean Corpuscular Hgb Conc. 33.1 g/dL (32.0-36.0); Mean Corpuscular Volume 90.6 fL (80.0-100.0); Monocytes # (auto) 0.8 10 ^3/uL (0-1.3); Monocytes % (auto) 8.7 % (0.0-12.0); Neutrophils # (auto) 7.2 10 ^3/uL (1.6-8.6); Neutrophils % (auto) 73.9 % (37.0-80.0); Red Blood Cells 4.49 10^6/uL (4.5-5.90); Red Cell Distribution Width 13.2 % (11.8-14.3); White Blood Cell 9.7 10^3/uL (4.4-10.8)
[2021-04-02] MEDS: metroNIDAZOLE 500MG/100ML 100 ML IV SCH ×3 (05:47→23:41)
[2021-04-02 06:07] LABS: Calcium 7.9 mg/dL (8.5-10.1); Potassium 3.9 mmol/L (3.5-5.1)
[2021-04-02 06:10] LABS: BUN/Creatinine Ratio 31.3
[2021-04-02 09:00] VITALS: BP 127/80
[2021-04-02] MEDS: PANTOPRAZOLE 40 MG/10 ML VIAL INJ IV SCH (09:12)
[2021-04-02] MEDS: cefTRIAXone 1GM/50ML D5W 50 ML IV SCH (09:12)
[2021-04-02] MEDS: HYDROcodone-ACET 5/325MG TAB PO PRN (11:02)
[2021-04-02] MEDS: SODIUM CHLORIDE 0.9% 1,000 ML IV SCH ×2 (11:03→23:41)
[2021-04-02 13:00] VITALS: BP 140/88
[2021-04-02] MEDS ORDERED: DEXTROSE (50%) 50ML SYRG IV PRN (13:00)
[2021-04-02] MEDS: HYDROmorphone HCL 2 MG/ML VL IV PRN ×3 (14:44→23:43)
[2021-04-02 16:52] VITALS: BP 132/86
[2021-04-02] MEDS: ACCU-CHEK COMFORT CURVE STRIP VI SCH ×2 (18:53→23:41)
[2021-04-02] MEDS: InsuLIN REG 1unit/0.01ml Soln (100units/ml) SC SCH (18:57)
[2021-04-02] MEDS: TAMSULOSIN HYDROCHLORIDE 0.4 MG CAP PO SCH (18:58)
[2021-04-02 22:00] VITALS: BP 141/83
[2021-04-03] MEDS: InsuLIN REG 1unit/0.01ml Soln (100units/ml) SC SCH ×4 (00:37→18:00)
[2021-04-03 05:00] VITALS: BP 123/81
[2021-04-03] MEDS: ACCU-CHEK COMFORT CURVE STRIP VI SCH ×3 (06:20→17:56)
[2021-04-03] MEDS: metroNIDAZOLE 500MG/100ML 100 ML IV SCH ×3 (06:20→23:36)
[2021-04-03] MEDS: HYDROmorphone HCL 2 MG/ML VL IV PRN ×4 (06:21→23:37)
[2021-04-03 08:44] VITALS: BP 106/71
[2021-04-03] MEDS: SODIUM CHLORIDE 0.9% 1,000 ML IV SCH ×2 (09:35→23:36)
[2021-04-03] MEDS: PANTOPRAZOLE 40 MG/10 ML VIAL INJ IV SCH (12:13)
[2021-04-03] MEDS: cefTRIAXone 1GM/50ML D5W 50 ML IV SCH (12:14)
[2021-04-03 12:59] VITALS: BP 133/80
[2021-04-03] MEDS: HYDROcodone-ACET 5/325MG TAB PO PRN (13:48)
[2021-04-03 17:00] VITALS: BP 127/94
[2021-04-03] MEDS: TAMSULOSIN HYDROCHLORIDE 0.4 MG CAP PO SCH (18:01)
[2021-04-03 22:00] VITALS: BP 129/82
[2021-04-04] MEDS: ACCU-CHEK COMFORT CURVE STRIP VI SCH ×4 (00:16→18:00)
[2021-04-04] MEDS: InsuLIN REG 1unit/0.01ml Soln (100units/ml) SC SCH ×4 (00:16→18:00)
[2021-04-04] MEDS: HYDROmorphone HCL 2 MG/ML VL IV PRN ×4 (04:56→20:25)
[2021-04-04 05:13] LABS: Basophils # (auto) 0 10 ^3/uL (0-0.2); Basophils % (auto) 0.2 % (0.0-2.0); Eosinophils # (auto) 0.1 10 ^3/uL (0-0.8); Eosinophils % (auto) 0.9 % (0.0-7.0); Hematocrit 43.7 % (41.0-53.0); Hemoglobin 14.4 g/dL (13.5-17.5); Lymphocytes # (auto) 1.4 10 ^3/uL (0.4-5.4); Lymphocytes % (auto) 16.2 % (10.0-50.0); Mean Corpuscular Hgb Conc. 33.1 g/dL (32.0-36.0); Mean Corpuscular Volume 90.6 fL (80.0-100.0); Monocytes # (auto) 0.7 10 ^3/uL (0-1.3); Monocytes % (auto) 8.3 % (0.0-12.0); Neutrophils # (auto) 6.7 10 ^3/uL (1.6-8.6); Neutrophils % (auto) 74.4 % (37.0-80.0); Red Blood Cells 4.82 10^6/uL (4.5-5.90); White Blood Cell 8.9 10^3/uL (4.4-10.8)
[2021-04-04 05:24] LABS: BUN/Creatinine Ratio 34.6; Calcium 8.5 mg/dL (8.5-10.1); Potassium 3.8 mmol/L (3.5-5.1)
[2021-04-04 06:36] VITALS: BP 121/72
[2021-04-04] MEDS: HYDROcodone-ACET 5/325MG TAB PO PRN ×2 (07:00→13:18)
[2021-04-04] MEDS: metroNIDAZOLE 500MG/100ML 100 ML IV SCH ×3 (07:00→21:26)
[2021-04-04 08:59] VITALS: BP 109/70
[2021-04-04] MEDS: cefTRIAXone 1GM/50ML D5W 50 ML IV SCH (10:56)
[2021-04-04] MEDS: PANTOPRAZOLE 40 MG/10 ML VIAL INJ IV SCH (10:57)
[2021-04-04] MEDS ORDERED: LACTULOSE 20Gm/30ML SOLN PO PRN (11:15)
[2021-04-04 12:31] VITALS: BP 119/81
[2021-04-04] MEDS: SODIUM CHLORIDE 0.9% 1,000 ML IV SCH ×2 (13:12→22:51)
[2021-04-04] MEDS: TAMSULOSIN HYDROCHLORIDE 0.4 MG CAP PO SCH (18:07)
[2021-04-04] MEDS: DOCUSATE SOD 100 MG CAP PO SCH (21:26)
[2021-04-04 22:00] VITALS: BP 124/81
[2021-04-05] MEDS: ACCU-CHEK COMFORT CURVE STRIP VI SCH ×5 (00:59→23:59)
[2021-04-05] MEDS: InsuLIN REG 1unit/0.01ml Soln (100units/ml) SC SCH ×5 (01:00→23:59)
[2021-04-05] MEDS: HYDROmorphone HCL 2 MG/ML VL IV PRN ×4 (01:12→20:51)
[2021-04-05 05:00] VITALS: BP 119/77
[2021-04-05 06:00] LABS: Basophils # (auto) 0 10 ^3/uL (0-0.2); Basophils % (auto) 0.3 % (0.0-2.0); Eosinophils # (auto) 0.3 10 ^3/uL (0-0.8); Eosinophils % (auto) 3.7 % (0.0-7.0); Hematocrit 38.8 % (41.0-53.0); Hemoglobin 12.8 g/dL (13.5-17.5); Lymphocytes # (auto) 1.9 10 ^3/uL (0.4-5.4); Lymphocytes % (auto) 27.2 % (10.0-50.0); Mean Corpuscular Hemoglobin 29.9 pg (28.0-32.0); Mean Corpuscular Hgb Conc. 32.9 g/dL (32.0-36.0); Monocytes # (auto) 0.6 10 ^3/uL (0-1.3); Neutrophils # (auto) 4.2 10 ^3/uL (1.6-8.6); Neutrophils % (auto) 59.8 % (37.0-80.0); Red Blood Cells 4.27 10^6/uL (4.5-5.90); Red Cell Distribution Width 13.2 % (11.8-14.3)
[2021-04-05 06:16] LABS: INR 1.14 (0.9-1.15); Partial Thromboplastin Time 27.5 sec (23.6-33.0)
[2021-04-05 06:27] LABS: Potassium 3.6 mmol/L (3.5-5.1)
[2021-04-05] MEDS: metroNIDAZOLE 500MG/100ML 100 ML IV SCH ×2 (06:31→13:18)
[2021-04-05 06:32] LABS: Albumin 2.2 g/dL (3.4-5.0); BUN/Creatinine Ratio 26.9; Bilirubin, Total 0.4 mg/dL (0.2-1.0); Calcium 8.1 mg/dL (8.5-10.1); Magnesium 2.1 mg/dL (1.6-2.6); Phosphorus 2.7 mg/dL (2.5-4.90); Total Protein 5.8 g/dL (6.4-8.2)
[2021-04-05 08:10] VITALS: BP 124/79
[2021-04-05] MEDS: SODIUM CHLORIDE 0.9% 1,000 ML IV SCH ×2 (08:39→16:31)
[2021-04-05] MEDS: cefTRIAXone 1GM/50ML D5W 50 ML IV SCH (08:39)
[2021-04-05 09:52] VITALS: BP 124/79
[2021-04-05] MEDS: PANTOPRAZOLE 40 MG/10 ML VIAL INJ IV SCH (10:28)
[2021-04-05] MEDS: DOCUSATE SOD 100 MG CAP PO SCH ×2 (10:29→21:45)
[2021-04-05 12:57] VITALS: BP 126/83
[2021-04-05] MEDS: HYDROcodone-ACET 5/325MG TAB PO PRN (13:24)
[2021-04-05] MEDS ORDERED: MAGNESIUM CITRATE SOLUTION 300 ML BTL PO ONE (14:45)
[2021-04-05 16:51] VITALS: BP 119/63
[2021-04-05] MEDS: TAMSULOSIN HYDROCHLORIDE 0.4 MG CAP PO SCH (18:08)
[2021-04-05 21:53] VITALS: BP 125/79
[2021-04-06] MEDS: SODIUM CHLORIDE 0.9% 1,000 ML IV SCH ×2 (02:59→15:36)
[2021-04-06] MEDS: HYDROmorphone HCL 2 MG/ML VL IV PRN (02:59)
[2021-04-06 04:59] VITALS: BP 115/72
[2021-04-06] MEDS: ACCU-CHEK COMFORT CURVE STRIP VI SCH ×2 (05:39→12:30)
[2021-04-06] MEDS: InsuLIN REG 1unit/0.01ml Soln (100units/ml) SC SCH ×2 (05:42→12:39)
[2021-04-06 08:30] VITALS: BP 129/81
[2021-04-06] MEDS: cefTRIAXone 1GM/50ML D5W 50 ML IV SCH (08:35)
[2021-04-06 09:00] VITALS: BP 129/81
[2021-04-06] MEDS: PANTOPRAZOLE 40 MG/10 ML VIAL INJ IV SCH (09:28)
[2021-04-06] MEDS: DOCUSATE SOD 100 MG CAP PO SCH (09:28)
[2021-04-06 13:00] VITALS: BP 133/86
[2021-04-06 14:15] VITALS: BP 133/86
== END 2021-04-06 17:00 | disposition home or self-care (01) | DRG 224 ==
LOC: ER 15:09 → OVERFLOW 22:45 → WEST WING 04-01 02:10
PROVIDERS: ADMIT Nurse Practitioner; ATTEND Internal Medicine
PROC: 0DNW4ZZ Release Peritoneum, Percutaneous Endoscopic Approach (ICD-10-PCS; 2021-04-01)
PROC: 0DTJ0ZZ Resection of Appendix, Open Approach (ICD-10-PCS; 2021-04-01)
PROC: 0WJG4ZZ Inspection of Peritoneal Cavity, Percutaneous Endoscopic Approach (ICD-10-PCS; 2021-04-01)
PROC: 0W9J0ZZ Drainage of Pelvic Cavity, Open Approach (ICD-10-PCS; principal; 2021-04-01 11:48)
PROC: 0T9B70Z Drainage of Bladder with Drainage Device, Via Natural or Artificial Opening (ICD-10-PCS; 2021-04-02)
DX: K35.33 Acute appendicitis with perforation, localized peritonitis, and gangrene, with abscess (principal); K76.0 Fatty (change of) liver, not elsewhere classified; E11.9 Type 2 diabetes mellitus without complications; K66.0 Peritoneal adhesions (postprocedural) (postinfection); I10 Essential (primary) hypertension; R33.8 Other retention of urine; Z20.822 Contact with and (suspected) exposure to COVID-19; Z83.3 Family history of diabetes mellitus
CPT/HCPCS: 36415; 71045; 74176; 80048; 80053; 81001; 82150; 82962; 83036; 83605; 83690; 83735; 84100; 84484; 85025; 85610; 85730; 87040; 87426; 96365; 96366; 96368; 96375; C9113; G0378; J0690; J0696; J1100; J1815; J1885; J2250; J2405; J2543; J3490

== ENCOUNTER 2021-08-22 15:11 | Emergency (ER) | payer MEDICAID ==
[~2021-08-22] VITALS: Ht 167.6 cm; Wt 78.5 kg
[2021-08-22] MEDS ORDERED: CEPH-509 PO (17:21)
[2021-08-22] MEDS ORDERED: SULF400T11 PO (17:21)
[2021-08-22] MEDS ORDERED: TETANUS-DIPTH-ACEL PERTUSSIS 0.5ML SYR Tdap IM ONE (17:30)
[2021-08-22 17:39] VITALS: BP 132/78
== END 2021-08-23 15:12 | disposition home or self-care (01) ==
LOC: ER 15:14
DX: L03.114 Cellulitis of left upper limb (principal); E11.9 Type 2 diabetes mellitus without complications; I10 Essential (primary) hypertension
CPT/HCPCS: 73130; 90471; 90715

== ENCOUNTER 2024-08-04 20:27 | Emergency (ER) | payer MEDICAID ==
[~2024-08-04] VITALS: Ht 165.1 cm; Wt 74.5 kg
[~2024-08-04 20:27] MED LIST: CEPH-509 PO; SULF400T11 PO
--- NOTE | 2024-08-04 20:40 | ED.PDOC ---
History of Present Illness HPI Comments 54 y/o M, with a Hx of DM and HTN, presents with c/o foreign body in right-eye with associated pain, today. Patient is a Kyrgyz speaker and endorses on having pain in his left eye, still, for 3x days after some shavings from a piece of metal he was cutting fell into his right-eye. He comments on going to and being told of having no foreign body in said eye at an urgent care facility he went to after incident 3x days ago. He denies having any photophobia, vision changes, or other associated symptoms or modifiers at this time. Time Seen by MD: 20:30 Primary Care Provider: DENIES Reviewed Notes: Nurses Notes, Medications, Allergies Allergies: Coded Allergies: NO KNOWN ALLERGIES (Unverified , 06/17/20) Home Meds Active Scripts Sulfamethoxazole-Trimethoprim (Bactrim) 1 Tab Tab, 1 TAB PO BID for 10 Days, #20 TAB Prov:YAAKOV NG MD 08/22/21 Cephalexin (KEFLEX 500) 500 Mg Cap, 1 CAP PO QID for 10 Days, #40 CAP Prov:YAAKOV NG MD 08/22/21 Information Source: Patient Mode of Arrival: Ambulatory Severity: Moderate Timing: Days Duration: Since onset Prehospital treatment: Other (see HPI) Past Medical History PAST MEDICAL HISTORY: DM, HTN Surgical History: Denies all surgeries Family History Family History: Reviewed,noncontributory to illness Social History Smoker: Non-Smoker Alcohol: Denies ETOH Use Drugs: Denies Drug Use Lives In: Home EENTM: reports: eye pain (left eye ), others (foreign body in left eye with assocaited pain ) All Other Systems: Reviewed and Negative (negative unless otherwise stated above or in HPI) Physical Exam General Appearance: No Apparent Distress, Normal HEENT: Pharynx Normal, TMs Normal, Other (right CORNEAL INJECTION, NO LACRIMATION OR PHOTOPHOBIA, otherwise normal ENT exam) Neck: Full Range of Motion, Non-Tender, Normal, Normal Inspection Respiratory: Chest Non-Tender, Lungs Clear, No Accessory Muscle Use, No Respiratory Distress, Normal Breath Sounds Cardiovascular: No Edema, No JVD, No Murmur, No Gallop, Normal Peripheral Pulses, Regular Rate/Rhythm Breast Exam: Deferred Gastrointestinal: No Organomegaly, Non Tender, No Pulsatile Mass, Normal Bowel Sounds, Soft Genitalia: Deferred Pelvic: Deferred Rectal: Deferred Extremities: No calf tenderness, Normal capillary refill, Normal inspection, Normal range of motion, Non-tender, No pedal edema Musculoskeletal : Apperance: Normal Neurologic: Alert, managing cognitive engineer II-XII nml as Tested, No Motor Deficits, Normal Affect, Normal Mood, No Sensory Deficits Cerebellar Function: Normal Reflexes: Normal Skin: Dry, Normal Color, Warm Lymphatic: No Adenopathy Was a procedure done? Was a procedure done?: Yes Sedation Sedation?: No Informed consent obtained: Yes Other Procedure Procedure right eye topical anesthesia achieved with tetracaine. fluorescein stain applied and showed a small FB at the 7 o'clock position. attempt to remove with a 18g needle tip was not successful. i advised pt to see an electronic drafter in AM. i will start him on ophthalmic antibiotic ointment and cycloplegic. Differential Dx Considerations may include: foreign body, conjunctivitis, rust ring, corneal abrasion, globe puncture, iritis, scleritis, episcleritis X-Ray, Labs, Meds, VS Vital Signs Date Time Temp Pulse Resp B/P (MAP) Pulse Ox O2 Delivery O2 Flow Rate FiO2 08/04/24 20:39 99.3 100 18 149/100 (116) 97 Current Medications Medications (Trade) Dose Ordered Sig/Chava Route Start Time Stop Time Status Last Admin Tetracaine HCl (Tetracaine 0.5% Opth Soln) 1 drop ONCE ONCE RIGHTEYE 08/04/24 20:45 08/04/24 20:46 DC 08/04/24 21:02 Fluorescein Sodium (Ful-Kathrine) 1 mg ONCE ONCE LEFTEYE 08/04/24 20:45 08/04/24 20:46 DC 08/04/24 21:02 Time of 1ST Reevaluation: 21:00 Reevaluation 1ST: Unchanged Patient Education/Counseling: Diagnosis, Treatment, Prognosis, Need For Follow Up Family Education/Counseling: No Family Present Additional Information from patient's past medical encounters: ED physician note on 08/22/21 I discussed treatment and results with medical personnel Departure 1 Departure Time of Disposition: 21:11 Impression: Primary Impression: Corneal FB (foreign body) Qualified Codes: T15.01XA - Foreign body in cornea, right eye, initial encounter Disposition: HOME / SELF CARE / HOMELESS Condition: Stable e-Prescriptions Cyclopentolate Hcl (Cyclopentolate Hcl) 1 % [place] 1 % OP TID for 5 Days, #1 ML Prov: BUBBA MARR MD 08/04/24 Erythromycin (Erythromycin) 5 Mg/Gm Oin 1 MG OP TID for 5 Days, #1 OIN Prov: BUBBA MARR MD 08/04/24 Discharged With: Self Critical Care Note Critical Care Time?: No Stability Stability form required: No Heart Score Heart Score: Heart Score Response (Comments) Value History N/A 0 EKG N/A 0 Age N/A 0 Risk Factors N/A 0 Troponin N/A 0 Total 0 I personally scribed for BUBBA MARR MD ([email or web address]) on 08/04/24 at 20:40. Elec tronically submitted by Papa Ortega ([email or web address]). I personally scribed for BUBBA MARR MD ([email or web address]) on 08/04/24 at 20:48. E lectronically submitted by Papa Ortega ([email or web address]). I personally scribed for BUBBA MARR MD ([email or web address]) on 08/04/24 at 20:53. Electronically submitted by Papa Ortega ([email or web address]). I personally scribed for BUBBA MARR MD ([email or web address]) on 08/04/24 at 21:07. Electronically submitted by Papa Ortega ([email or web address]). BUBBA MARR MD Aug 04, 2024 20:40
[2024-08-04] MEDS: TETRACAINE HCL 0.5% OPTH(EYE) SOLN 4ML RIGHTEYE ONE (21:02)
[2024-08-04] MEDS: FLUORESCEIN SOD OPTH TEST STRIP LEFTEYE ONE (21:02)
[2024-08-04] MEDS ORDERED: ERY05OO OP (21:14)
[2024-08-04] MEDS ORDERED: CYCL1SOL20 OP (21:14)
[2024-08-04 21:43] VITALS: BP 149/100; PULSE 100; RESP 18; TEMP 99.3; O2SAT 97
[2024-08-04] MEDS: TETANUS-DIPTH-ACEL PERTUSSIS 0.5ML SYR Tdap IM ONE (21:47)
== END 2024-08-04 21:52 | disposition home or self-care (01) ==
LOC: ER 20:27
DX: T15.01XA Foreign body in cornea, right eye, initial encounter (principal); I10 Essential (primary) hypertension; E11.9 Type 2 diabetes mellitus without complications; Z79.899 Other long term (current) drug therapy; X58.XXXA Exposure to other specified factors, initial encounter; Y93.89 Activity, other specified; Y92.89 Other specified places as the place of occurrence of the external cause; Y99.8 Other external cause status
CPT/HCPCS: 90471; 90715